=== PATIENT | female | born 1985 | race Caucasian/White ===

== ENCOUNTER 2018-04-06 18:56 | Emergency (ER) | payer OTHER ==
[~2018-04-06] VITALS: Ht 162.6 cm; Wt 55.3 kg
[2018-04-06] MEDS ORDERED: ROBAXIN 750 MG750 M1 PO (19:18)
[2018-04-06 19:25] VITALS: BP 145/87
== END 2018-04-06 19:26 | disposition home or self-care (01) ==
LOC: M.ERS 18:56
DX: T23.572A Corrosion of first degree of left wrist, initial encounter (principal); T32.0 Corrosions involving less than 10% of body surface; V87.7XXA Person injured in collision between other specified motor vehicles (traffic), initial encounter; Y93.89 Activity, other specified; Y92.89 Other specified places as the place of occurrence of the external cause; Y99.8 Other external cause status